=== PATIENT | male | born 1960 | race Caucasian/White ===

== ENCOUNTER 2023-10-13 05:53 | Day surgery (SDC) | payer OTHER, SELFPAY ==
[2023-09-28 12:41] VITALS: BMI 34.8
[2023-09-28 13:07] LABS: % Basophils 0.5 % (0-2); % Eosinophils 3.7 % (0-6); % Immature Granulocytes 0.3 % (0-0.5); % Lymphocytes 30.9 % (20.5-51.1); % Monocytes 7.5 % (1.7-9.3); % Neutrophils 57.1 % (42.2-75.2); Absolute Eosinophils 0.3 10^3/uL (0-0.7); Absolute Lymphocytes 2.3 10^3/uL (1.2-3.4); Absolute Monocytes 0.6 10^3/uL (0.1-0.6); Absolute Neutrophils 4.2 10^3/uL (1.4-6.5); Hematocrit 41.8 % (39.0-52.0); Hemoglobin 14.4 g/dL (13.0-18.0); Mean Corp Hgb Conc. 34.4 g/dL (33.0-37.0); Mean Corpuscular Hgb 30.8 pg (27.0-31.0); Mean Corpuscular Volume 89.3 fL (80.0-94.0); Mean Platelet Volume 9.5 fL (7.4-10.4); Nucleated Red Blood Cells % 0 % (-); Platelet Count 261 10^3/uL (130-400); Red Blood Cell Count 4.68 10^6/uL (4.70-6.10); Red Cell Dist. Width 12.8 % (11.5-14.5); White Blood Cell Count 7.3 10^3/uL (4.8-10.8)
[2023-09-28 13:15] LABS: INR 1.09; PT 14.3 Sec (11.4-14.6)
[2023-09-28 13:16] LABS: ALT (SGPT) 32 U/L (0-50); AST (SGOT) 29 U/L (17-59); Albumin 4.2 g/dl (3.5-5.0); Alkaline Phosphatase 62 U/L (38-126); Blood Urea Nitrogen 17 mg/dl (9-20); Calcium 9.5 mg/dl (8.4-10.2); Carbon Dioxide 28 mmol/L (22-30); Chloride 101 mmol/L (98-107); Estimated Creatinine Clearance 86 ml/min; Glucose 92 mg/dl (70-99); Potassium 4.4 mmol/L (3.5-5.1); Sodium 138 mmol/L (135-145); Total Bilirubin 0.5 mg/dl (0.2-1.3); Total Protein 6.9 g/dl (6.3-8.2); eGFR > 60.00
[2023-10-13] VITALS (10 sets, daily range): BP systolic 123–169; BP diastolic 69–89; BMI 35.0
[2023-10-13 09:01] LABS: ACT-LR - POC 269 Seconds (116-155)
[2023-10-13 09:19] LABS: ACT-LR - POC 273 Seconds (116-155)
[2023-10-13 09:36] LABS: ACT-LR - POC 313 Seconds (116-155)
--- NOTE | 2023-10-13 10:03 | ITS.CL.ABL ---
[facility] - Ablation
Ablation
Procedure Report:
ELECTROPHYSIOLOGY ABLATION STUDY
DATE: October 13, 2023 REFERRING: Dr. Capo Gomez
INDICATION: Paroxysmal supraventricular tachycardia in the form of atrial fibrillation.
HISTORY: See H and P. As above
ANTIARRHYTHMIC DRUG: Flecainide
PRE-PROCEDURE YSABEL: No atrial thrombus
PRESENTING RHYTHM: Sinus rhythm
'TIME-OUT': called and confirmed.
SEDATION/ANESTHESIA: provided via the anesthesia department using general anesthesia (LMA).
INTRAVENOUS/ARTERIAL ACCESS:
Right femoral venous - 8Fr
Left femoral venous - 8 Fr, 6 Fr
Vascade vascular closure was utilized
Ultrasound guidance for bilateral femoral vein access was utilized by me to obtain access with demonstration of normal anatomy
CHADS-VASC Score:
HAS-Bled Score
PROCEDURE:
1. A decapolar CS catheter was placed within the CS for mapping and pacing. This was also used as the reference catheter for the 3-D map.
2. The intracardiac ultrasound catheter was positioned in the RA to identify the FO for targeting of transseptal puncture, assist in identification of the pulmonary vein ostia, monitoring pre and post ablation pulmonary vein flow velocities,
monitoring for 'bubble' formation during RF application as a sign of thermal injury, and to monitor for pericardial effusion during mapping and ablation procedure. Left atrial size, LV ejection fraction, and pulmonary vein flows were monitored
pre and post ablation procedure. The other valves were inspected and found to be free of significant regurgitation or stenosis.
3. Half of the calculated heparin bolus was administered prior to the first transeptal puncture. Transseptal puncture was performed to diagnose RA and LA pressure so that safetey of LA mapping and ablation could be further assessed, and to access
the left atrium and pulmonary veins for mapping and ablation. This entailed advancing an 8 Fr SL-1 sheath with dilator into the superior vena cava and withdrawing both (monitoring intracardiac ultrasound, fluoroscopy and tip pressure) with the tip
oriented toward the atrial septum. The fossa ovalis was engaged (indicated by sudden displacement of the sheath tip as well as tenting of the fossa seen on intracardiac ultrasound). Left atrial access required a pass with the [place] needle
extended. Left atrial catheter position was confirmed by pressure monitoring (RA mean pressure 8 mm Hg and LA mean presure 14 mm Hg), LA saturation (99%), as well as fluoroscopy. The sheath was advanced over the dilator and positioned in the left
atrium. This procedure was repeated for the Agilis sheath. The remainder of the calculated heparin bolus was administered and heparin was
infused to maintain ACT at 300 -350 seconds throughout the case.
4. RA pacing was performed via the proximal decapolar poles and LA pacing was performed via the distal decapolr poles.
5. A quadrapolar catheter was first positioned at the His position for His Bundle recording which was tagged via the 3-D Navex sytem, and then passed to the RVA for RV pacing and recording.
6. The ablation catheter was positioned through one of the transeptal seaths and a 20 pole ring mapping catheter was positioned through the second seath into the LA and then the ostia of the LIPV, LSPV, RSPV and the RIPV.
7. Next, a 3-D map was created using Navex. A 3-D reconstructed CT image was compared to the 3-D Navex map to assist in anatomic interpretation, mapping and ablation. The CT image and the NavX image were fused.
8. Pulmonary vein and extrapulmonary vein lesions were given. The extrapulmonary lesion was given to the roof outside the left superior pulmonary vein for 3 minutes. Lesions were also given with a 23 and 28 mm cryoballoon's. The distal left
jacqueline was isolated with a 3-minute duration lesion to the superior vein in a 1 minute and 2-minute portion and a 3-minute freezing application was also given to the left inferior pulmonary vein after a 1 minute distal lesion. More proximal lesions
were given with a 28 mm cryoballoon for 3 minutes to the left superior and 2 distinct 3-minute freezing applications left inferior pulmonary vein. There is no cooling of the esophagus or loss of phrenic nerve noted. For the right superior pulm
vein all 28 mm lesions for 3 and 2-minute and for the right inferior pulm vein 1 distinct 3.5-minute freezing application.
Once entrance next block was confirmed EP study demonstrated no other nonpulmonary triggers for atrial fibrillation noted.
9. Normal sinus node and AV laura function noted.
TOTAL FLOURO TIME: 13.4 minutes
TOTAL RF DURATION: 0 minutes
REVERSAL OF HEPARIN: 35 mg of protamine, slow IV administration
COMPLICATIONS:
None
Intracardiac US shows no pericardial effusion post ablation.
SUMMARY:
Complex left atrial mapping and ablation.
Isolation of all 4 pulmonary veins as above with extrapulmonary lesion of the reflux of the left superior pulm vein and 20 mm cryoballoon used wide [place] with the 23 mm cryoballoon utilized for the distal left jacqueline from the superior and inferior
aspects. Inter[place] block confirmed in all 4 pulmonary veins.
RECOMMENDATIONS:
1. Admit to monitored bed.
2. Resume anticoagulation
3. Out of bed to hours
4. Discontinue flecainide
Copy to: Dr. Capo Gomez
--- NOTE | 2023-10-13 12:32 | PTCARENOTE ---
approx 1213 after ambulation and voiding pt rt groin ooze. dressing removed per orders and pressure held for 10 min . redressed. pt to remain in bed until 100pm per [facility]np jesse .
--- NOTE | 2023-10-13 13:11 | PTCARENOTE ---
pt ambulated around unit without oozing from groin sites. pt ready for discharge per iesha rowe.
--- NOTE | 2023-10-13 13:27 | W.PN.UPDATE ---
Update Note
Progress Note Update
Pt seen post PVI. Bilat groin sites with vascade closure, no ht. Small ooze noted to right groin when initally OOB, pressure held and br for 30 extra minutes- groin now stable, no ht/bleeding, non tender, dressing CDI. OOB ambulating now without
ooze, pain. Post EKG NSR 70s w/1st deg AVB, no acute changes. Resume eliquis today. Discontinue flecainide at this time. Followup with Dr. Gomez as scheduled. Home today if groin sites/tele remain stable.
== END 2023-10-13 13:20 | disposition home or self-care (01) ==
LOC: CATH 05:53
PROVIDERS: ATTENDING PHYSICIAN Internal Medicine Cardiovascular Disease; FAMILY PHYSICIAN Family Medicine; OTHER PHYSICIAN Internal Medicine Cardiovascular Disease
DX: I48.0 Paroxysmal atrial fibrillation (principal); I10 Essential (primary) hypertension; E78.5 Hyperlipidemia, unspecified; I44.0 Atrioventricular block, first degree; R01.1 Cardiac murmur, unspecified; K21.9 Gastro-esophageal reflux disease without esophagitis; R42 Dizziness and giddiness; M19.90 Unspecified osteoarthritis, unspecified site; M51.36 Other intervertebral disc degeneration, lumbar region; F32.A Depression, unspecified; G47.00 Insomnia, unspecified; E66.9 Obesity, unspecified; Z68.34 Body mass index [BMI] 34.0-34.9, adult; Z87.891 Personal history of nicotine dependence; Z79.01 Long term (current) use of anticoagulants
CPT/HCPCS: C1766; C1733; C1894; C1730; C1893; C1892; C1759; 36415; 75572; 76937; 80053; 83735; 85025; 85347; 85610; 86850; 86900; 86901; 93005; 93656; C1760; Q9967